=== PATIENT | female | born 1980 | race Caucasian/White ===

== ENCOUNTER 2018-10-09 09:04 | Emergency (ER) | payer SELFPAY ==
[2018-10-09] MEDS ORDERED: traMADol HCl 50 MG TAB ONE (09:54)
[2018-10-09] MEDS ORDERED: Ketorolac Tromethamine 60 MG/2 ML VIAL ONE (09:54)
--- NOTE | 2018-10-09 10:58 | CT ---
CT OF THE LUMBAR SPINE: Date: 10-09-18 History: Low back pain radiating into the left lower extremity. Technique: Axial CT imaging obtained at 2.5 mm intervals from lower thoracic spine through lower sacr um without contrast. Coronal and sagittal reformatted imaging obtained. FINDINGS: There are multiple infrarenal calculi on the right measuring up to 5-6 mm. Imaged retroperitoneal str uctures grossly unremarkable otherwise. Evaluation for central canal and/or neural foraminal stenosis limited on routine CT. Probable punctate nonobstructing stone and upper pole of the left kidney noted as well. There is no lytic or blastic bone lesion seen. There is no evidence for acute fracture or dislocation noted. T12-L1: No osseous cause of significant central canal or neural foraminal stenosis. L1-2: No osseous cause of significant central canal or neural foraminal stenosis. L2-3: No osseous cause of significant central canal or neural foraminal stenosis. L3-4: No osseous cause of significant central canal or neural foraminal stenosis. L4-5: No osseous cause of significant central canal or neural foraminal stenosis. L5-S1: No osseous cause of significant central canal or neural foraminal stenosis. No discrete lytic or blastic bone lesion. IMPRESSION: 1. Bilateral renal calculi. 2. No acute osseous abnormality. If there are radicular symptoms, MRI is suggested. POS: [facility]
== END 2018-10-09 10:40 | disposition home or self-care (01) ==
LOC: NAV ERS 09:04
DX: M54.42 Lumbago with sciatica, left side (principal); N20.0 Calculus of kidney; E03.9 Hypothyroidism, unspecified; F17.210 Nicotine dependence, cigarettes, uncomplicated
CPT/HCPCS: 72131; 96372; J1885

== ENCOUNTER 2019-02-27 21:08 | Emergency (ER) | payer OTHER, SELFPAY ==
[2019-02-27] MEDS ORDERED: HYDROcodone/Acetaminophen 5/325 mg Tablet ONE (21:17)
[2019-02-27] MEDS ORDERED: Ondansetron ODT 4 MG TAB ONE (21:18)
--- NOTE | 2019-02-27 21:54 | RAD ---
RIGHT FOOT: 02/27/19 Three views. INDICATIONS: Injury. Tarsals appear intact. Metatarsals and phalanges appear intact. IMPRESSION: No acute findings. POS: [facility]
== END 2019-02-27 22:00 | disposition home or self-care (01) ==
LOC: NAV ERS 21:08
DX: S90.31XA Contusion of right foot, initial encounter (principal); E03.9 Hypothyroidism, unspecified; F17.210 Nicotine dependence, cigarettes, uncomplicated; W22.8XXA Striking against or struck by other objects, initial encounter
CPT/HCPCS: Q0162

== ENCOUNTER 2019-07-10 22:06 | Emergency (ER) | payer OTHER, SELFPAY ==
[2019-07-10] MEDS ORDERED: traMADol HCl 50 MG TAB ONE (23:03)
[2019-07-10] MEDS ORDERED: Naproxen 500 MG TAB ONE (23:03)
--- NOTE | 2019-07-11 09:22 | RAD ---
PA AND LATERAL VIEWS OF THE CHEST: HISTORY: Chest pain. FINDINGS: The heart size is normal. The lungs are expanded without focal areas of consolidation, pneumothorace s, or pleural effusions. No acute osseous abnormalities are seen. IMPRESSION: No acute process. POS: OFF
== END 2019-07-10 23:27 | disposition home or self-care (01) ==
LOC: NAV ERS 22:06
DX: R07.2 Precordial pain (principal); E03.9 Hypothyroidism, unspecified; F17.210 Nicotine dependence, cigarettes, uncomplicated
CPT/HCPCS: 71046; 93005

== ENCOUNTER 2019-12-15 22:57 | Emergency (ER) | payer OTHER, SELFPAY ==
[2019-12-15] MEDS ORDERED: Promethazine HCl 25 MG/ML VIAL ONE (23:38)
[2019-12-15] MEDS ORDERED: Sodium Chloride 0.9% 0 ML ONE (23:38)
[2019-12-15] MEDS ORDERED: Morphine 4 MG/ML VIAL ONE (23:38)
[2019-12-15 23:57] LABS: #Basophils 0.1 thou/uL (0.0-0.2); #Eosinphils 0.6 thou/uL (0.0-0.7); #Lymphocytes 3.4 thou/uL (1.20-3.40); #Monocytes 0.6 thou/uL (0.11-0.59); #Neutrophils 8.9 thou/uL (1.40-6.50); %Basophils 0.9 % (0.0-1.0); %Eosinophils 4.6 % (0.0-10.0); %Monocytes 4.7 % (0.0-10.0); %Neutrophils 64.9 % (42.0-75.0); Mean Corpuscular HGB CONC 33.2 g/dL (32.0-36.0); Mean Corpuscular Hemoglobin 28.5 pg (27.0-31.0); Mean Corpuscular Volume 86.1 fL (78.0-98.0); Mean Platelet Volume 6.5 fL (7.4-10.4); Platelet Count 422 thou/uL (130-400); RBC Distribution Width 12.2 % (11.5-14.5); Red Blood Cell (RBC) Count 4.92 mill/uL (4.20-5.40); White Blood Cell (WBC) Count 13.7 thou/uL (4.8-10.8)
[2019-12-16 00:18] LABS: ALT (SGPT) 16 U/L (8-55); AST (SGOT) 13 U/L (5-34); Albumin 4.3 g/dL (3.5-5.0); Alkaline Phosphatase 123 U/L (40-110); Anion Gap 18 mmol/L (10-20); BUN (Urea Nitrogen) 11 mg/dL (7.0-18.7); Bilirubin, Total 0.2 mg/dL (0.2-1.2); Calc. Creatinine Clearance 0 mL/min (70-130); Calcium 9.5 mg/dL (7.8-10.44); Carbon Dioxide 19 mmol/L (22-29); Chloride 108 mmol/L (98-107); Estimated GFR-MDRD 70; Globulin 3.5 g/dL (2.4-3.5); Glucose 93 mg/dL (70-105); Lipase 18 U/L (8-78); Potassium 4.1 mmol/L (3.5-5.1); Protein, Total 7.8 g/dL (6.0-8.3); Sodium 141 mmol/L (136-145)
[2019-12-16 00:43] LABS: Bilirubin Negative (Negative); Blood, Urine Negative (Negative); Clarity Clear (Clear); Glucose, Urine (Dipstick) Negative (Negative); Leukocyte Trace (Negative); Nitrite Negative (Negative); Protein, Urine (Dipstick) Negative (Neg-Trace); Urobilinogen 0.2 mg/dL (Less than 2)
[2019-12-16 00:48] LABS: Pregnancy Test - Urine (BHCG) Negative (Negative); Pregu Control Background? CLEAR/WHITE (CLR/WHITE); Pregu Control Bar Appear? YES (CONTROL BAR); Specific Gravity 1.021 (1.002-1.036)
[2019-12-16 00:50] LABS: Bacteria/HPF Rare-Few HPF (None Seen); RBC/HPF None Seen HPF (0-3); Squamous Epithelial 0-3 HPF (0-3); WBC/HPF 0-3 HPF (0-3)
[2019-12-16] MEDS ORDERED: Acetaminophen 325 MG TAB ONE (01:01)
--- NOTE | 2019-12-16 07:45 | CT ---
PRELIMINARY REPORT/[facility]/EMERGENCY AFTER HOURS PROCEDURE: EXAM: CT Abdomen and Pelvis with Intravenous Contrast CLINICAL HISTORY: HX OF DIVERTICULTIS X 2 DAYS. PT PRESENTS WITH WORSENING PAIN TONIGHT. TECHNIQUE: Axial computed tomography images of the abdomen and pelvis with intravenous contrast. CONTRAST: With; ISOVUE 370-95mL COMPARISON: None provided. FINDINGS: LUNG BASES: No basilar airspace consolidation or pleural effusion. LIVER: Unremarkable. GALLBLADDER AND BILE DUCTS: Unremarkable. No calcified stone. No ductal dilation. PANCREAS: Unremarkable. SPLEEN: Unremarkable. ADRENAL GLANDS: Unremarkable. KIDNEYS, URETERS, AND BLADDER: Unremarkable. No hydronephrosis or nephrolithiasis. No ureteral or jacques dder calculi. STOMACH AND BOWEL: Inflammatory change in the left lower quadrant involving the sigmoid colon consist ent with diverticulitis. There is possibly a small degree of fluid within the inflamed area, however there is no abscess or gas to suggest jewel perforation. There is fluid within the large bowel and to a lesser degree, within the small bowel. There is no evidence of obstruction. APPENDIX: No CT evidence for appendicitis. PERITONEUM: No free fluid. No free air. LYMPH NODES: Prominent left lower quadrant and retroperitoneal lymph nodes which are nonpathologic by size criteria. REPRODUCTIVE: Unremarkable as visualized. VASCULATURE: No aortic aneurysm. BONES: No fracture or suspicious osseous abnormality. ABDOMINAL WALL AND SOFT TISSUES: Unremarkable. IMPRESSION: 1. Findings compatible with diverticulitis in the left lower quadrant with possible microperforation, however no jewel perforation or abscess. 2. Fluid within large bowel and to lesser degree within small bowel. Correlate for enterocolitis or o ther diarrhea causing illness. ELECTRONICALLY SIGNED BY: Anish Greenwood M.D. Dec 16, 2019 12:29:16 AM CDT This report is intended for review by the ordering physician only, in accordance of law. If you recei ve this report in error, please call [facility] at [phone]. FINAL REPORT CT ABDOMEN AND PELVIS WITH IV CONTRAST: INDICATION: History of diverticulitis. COMPARISON: None. FINDINGS: There is wall thickening and pericolonic inflammatory stranding involving the sigmoid colon consisten t with changes of acute diverticulitis. There is fluid density within the colon which may reflect con dition of mild diarrheal state. There are bilateral nonobstructing renal calculi. The liver, spleen, pancreas, and adrenal glands are normal appearing. There is a normal appendix in t he right lower quadrant. Small bowel is of normal caliber. The uterus is surgically absent. Adnexa ar e not definitely seen. No drainable fluid collection is evident. No definite acute osseous abnormality is evident. IMPRESSION: I agree with the preliminary report provided by [facility]. 1. Findings are consistent with noncomplicated acute colonic diverticulitis. 2. Bilateral nephrolithiasis. POS: BH
== END 2019-12-16 01:25 | disposition short-term general hospital (02) ==
LOC: NAV ERS 22:57
DX: K57.20 Diverticulitis of large intestine with perforation and abscess without bleeding (principal); E03.9 Hypothyroidism, unspecified; F17.210 Nicotine dependence, cigarettes, uncomplicated
CPT/HCPCS: 36415; 74177; 80053; 81003; 81015; 81025; 83605; 83690; 85025; 96365; 96375; J1956; J2270; J2550; J3490